=== PATIENT | male | born 1950 ===

== ENCOUNTER 2021-12-29 02:54 | Emergency (ER) | payer MEDICARE ==
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
[2021-12-29 06:01] LABS: Basophils # (Auto) 0.1 K/mm3 (0.0-0.1); Basophils % (Auto) 0.9 % (0.0-1.8); Eosinophils # (Auto) 0.2 K/mm3 (0.0-0.4); Eosinophils % (Auto) 2.7 % (0.0-4.3); Hematocrit 31.2 % (35.5-45.6); Hemoglobin 10.2 gm/dl (11.8-15.2); Lymphocytes # (Auto) 1.2 K/mm3 (1.2-5.4); Lymphocytes % (Auto) 16.5 % (13.4-35.0); Mean Corpuscular HGB Conc 33 % (32-34); Mean Corpuscular Volume 88 fl (84-94); Monocytes # (Auto) 0.5 K/mm3 (0.0-0.8); Monocytes % (Auto) 7.2 % (0.0-7.3); Platelet Count 379 K/mm3 (140-440); Red Blood Count 3.54 M/mm3 (3.65-5.03); Red Cell Distribution Width 15.1 % (13.2-15.2)
[2021-12-29 06:13] LABS: Alanine Aminotransferase 27 units/L (7-56); Albumin 3.5 g/dL (3.9-5); Blood Urea Nitrogen 13 mg/dL (9-20); Calcium 9.6 mg/dL (8.4-10.2); Hemolysis Index 3
[2021-12-29 06:18] LABS: BUN/Creatinine Ratio 22
[2021-12-29 08:41] LABS: Bilirubin,Urine NEG (Negative); Blood,Urine NEG (Negative); Color,Urine Yellow (Yellow); Protein,Urine <15 mg/dL mg/dL (Negative); Urobilinogen,Urine < 2.0 mg/dL (<2.0)
[2021-12-29 08:49] LABS: Amphetamine Screen,Urine Negative; Benzodiazepines Screen,Urine Negative
[2021-12-29 09:14] LABS: Cocaine Screen,Urine Negative; Methadone Screen,Urine Negative; Opiate Screen,Urine Negative
[2021-12-29 09:33] LABS: Cannabinoid Screen,Urine Positive
--- NOTE | 2021-12-29 10:45 | Event Note ---
Date: 12/29/21 Pt is to be seen by case management as he will not be accepted by psych facility due to his ostomy bag. Pt has already have 1013 and will be moved from main ED to the back psych area pending case management evaluation.
--- NOTE | 2021-12-29 11:25 | Consultation ---
History of Present Illness - Reason for Consult Consult date: 12/29/21 Reason for consult: MHE - History of Present Psychiatric Illness The patient was seen today. He is calm, cooperative and pleasant. He is playful. He says he was brought from another hospital. He says the other hospital wasn't equipped to handle his urinary bag. He asks if he could show me and raises his shirt up and shows me. He is a/o x 3. He says he's from [place] and lives with his . He says he has a history of "hallucinations and womanizing." He then laughs. He could not recall his meds. The patient denies SI/HI. He says "I was suicidal about 10 years ago." He denies hallucinations at present. The patient denies any illicit drug. He says "I do medical marijuana and I love CBD gummie s." He says it helps with his pain. PAST PSYCHIATRIC HISTORY: Diagnoses: schizophrenia Suicide attempts or Self-harm behavior. Denies Prior psychiatric hospitalizations: Denies Substance Abuse history: Denies Previous psychiatric medications tried: could not recall Outpatient treatment: Denies PAST MEDICAL HISTORY: urostomy Family Psychiatric History None reported or documented SOCIAL HISTORY Marital Status: Living Arrangements: with spouse Employment Status: Retired Access to guns/weapons:No Education: History of Abuse: Denies Legal History: Denies REVIEW OF SYSTEMS Constitutional: Negative for weight loss ENT: Negative for stridor Respiratory: Negative for cough or hemoptysis All other systems reviewed and are negative MENTAL STATUS EXAMINATION General Appearance and Behavior: Age appropriate, wearing appropriate clothes, cooperative, polite with questioning, good eye contact, calm, cooperative, pleasant Cooperation: cooperative Psychomotor Behavior: Psychomotor normal Mood: fine Affect and affective range: congruent with stated affect Thought Process: goal directed Thought Content: None Speech: Normal volume, Regular rate and rhythm Suicidal Ideation: Denies Homicidal Ideation: Denies Hallucination: Denies Delusions: None elicited Impulse Control: Normal Insight and Judgment: Normal Memory: Limited Attention: distracted Orientation: Alert and oriented Assessment and Plan (1) Hx of Schizophrenia Treatment Continue home medications Sitter: Per primary Medical: Per primary Disposition: Do not recommend acute psychiatric inpatient treatment Will sign off. Thanks Case staffed with Dr. Dior Medications and Allergies Allergies Allergy/AdvReac Type Severity Reaction Status Date / Time No Known Allergies Allergy Unverified 12/29/21 03:37 Mental Status Exam - Vital signs Last Vital Signs Temp 98.2 F 12/29/21 10:38 Pulse 80 12/29/21 10:38 Resp 20 12/29/21 10:38 BP 124/50 12/29/21 10:38 Pulse Ox 99 12/29/21 10:38 Results Result Diagrams: 12/29/21 05:11 12/29/21 05:11 Abnormal lab results 12/29/21 12/29/21 12/29/21 Range/Units 05:11 05:11 05:11 RBC 3.54 L (3.65-5.03) M/mm3 Hgb 10.2 L (11.8-15.2) gm/dl Hct 31.2 L (35.5-45.6) % Seg Neutrophils % 72.7 H (40.0-70.0) % Creatinine 0.6 L (0.8-1.3) mg/dL Glucose 129 H (75-100) mg/dL Albumin 3.5 L (3.9-5) g/dL Salicylates < 0.3 L (2.8-20.0) mg/dL Acetaminophen (10.0-30.0) ug/mL 12/29/21 Range/Units 05:11 RBC (3.65-5.03) M/mm3 Hgb (11.8-15.2) gm/dl Hct (35.5-45.6) % Seg Neutrophils % (40.0-70.0) % Creatinine (0.8-1.3) mg/dL Glucose (75-100) mg/dL Albumin (3.9-5) g/dL Salicylates (2.8-20.0) mg/dL Acetaminophen 5.0 L (10.0-30.0) ug/mL All other labs normal.
[2021-12-29 15:56] VITALS: BP 137/77
== END 2021-12-29 15:56 | disposition home or self-care (01) ==
LOC: ED 02:54
DX: Z43.6 Encounter for attention to other artificial openings of urinary tract (principal); Z00.8 Encounter for other general examination; I10 Essential (primary) hypertension; E11.9 Type 2 diabetes mellitus without complications; Z85.46 Personal history of malignant neoplasm of prostate; Z85.51 Personal history of malignant neoplasm of bladder; F20.9 Schizophrenia, unspecified; F32.9 Major depressive disorder, single episode, unspecified; Z98.890 Other specified postprocedural states; F17.290 Nicotine dependence, other tobacco product, uncomplicated
CPT/HCPCS: 36415; 80053; 80307; 80320; 81001; 85025; 99284; G0480